=== PATIENT | female | born 1965 | race Native Hawaiian/Other Pacific Islander ===

== ENCOUNTER 2019-04-01 20:37 | Inpatient (IN) | payer BC, OTHER ==
[~2019-04-01] VITALS: Ht 154.9 cm; Wt 83.7 kg
[2019-04-01] MEDS ORDERED: LACTATED RINGERS 1,000 ML IV ONE (22:19)
[2019-04-01 22:27] LABS: BASOPHILS % (AUTO) 0 % (0-10); EOSINOPHILS % (AUTO) 0 % (0-10); HEMATOCRIT 51 % (35-52); HEMOGLOBIN 17.3 G/DL (11.5-16.0); LYMPHOCYTES # (AUTO) 2.4 X 10^3 (1.0-4.0); LYMPHOCYTES % (AUTO) 14 % (12-44); MEAN CORPUSCULAR HEMOGLOBIN 29 PG (25-34); MEAN CORPUSCULAR HGB CONC 34 G/DL (32-36); MEAN CORPUSCULAR VOLUME 86 FL (80-99); MEAN PLATELET VOLUME 9.6 FL (7.4-10.4); MONOCYTES # (AUTO) 1.1 X 10^3 (0.0-1.0); MONOCYTES % (AUTO) 7 % (0-12); NEUTROPHILS # (AUTO) 13.9 X 10^3 (1.8-7.8); NEUTROPHILS % (AUTO) 80 % (42-75); PLATELET COUNT 311 10^3/uL (130-400); WHITE BLOOD COUNT 17.4 10^3/uL (4.3-11.0)
[2019-04-01] MEDS ORDERED: ONDANSETRON 4 MG/2 ML (SDV) Z0FRAN IVP ONE (22:30)
[2019-04-01 22:40] LABS: ALBUMIN 4.4 GM/DL (3.2-4.5); BILIRUBIN,TOTAL 0.6 MG/DL (0.1-1.0); CREATININE SERUM 1.46 MG/DL (0.60-1.30); MAGNESIUM 1.8 MG/DL (1.6-2.4); POTASSIUM 3.1 MMOL/L (3.6-5.0); TOTAL PROTEIN 10.1 GM/DL (6.4-8.2)
[2019-04-01 22:46] LABS: CLARITY,URINE CLOUDY; COLOR,URINE YELLOW; GLUCOSE, URINE (UA) NEGATIVE (NEGATIVE); KETONES,URINE NEGATIVE (NEGATIVE); LEUKOCYTE ESTERASE ,URINE TRACE (NEGATIVE); NITRITE,URINE NEGATIVE (NEGATIVE); PROTEIN,URINE 3+ (NEGATIVE)
--- NOTE | 2019-04-01 23:00 | NUR ---
RECEIVED REPORT FROM INESSA DIOP AT THIS TIME TO ASSUME CARE OF PT
[2019-04-01 23:17] LABS: BAND NEUTROPHILS 16 %; LYMPHOCYTES % (MANUAL) 15 %; MONOCYTES % (MANUAL) 6 %; NEUTROPHILS % (MANUAL) 63 %; RBC MORPH NORMAL
[2019-04-01 23:20] LABS: BACTERIA,URINE LARGE /HPF; BILIRUBIN,URINE 1+ (NEGATIVE); RBC,URINE 25-50 /HPF; SQUAMOUS EPITHELIAL CELL,UR 25-50 /HPF
[2019-04-01 23:30] LABS: PROTHROMBIN TIME PATIENT 13.9 SEC (12.2-14.7)
[2019-04-02] MEDS ORDERED: cefTRIAXone FOR IV USE 1,000 MG in WATER (STERILE) FOR INJECTION 10 ML IV ONE (00:15)
[2019-04-02] MEDS ORDERED: PANTOPRAZOLE 40 MG (PROTONIX) VIAL IV ONE (00:30)
[2019-04-02] MEDS ORDERED: POTASSIUM CHLORIDE INJ 20 MEQ in D5 NS 1000 ML IV SOLUTION 1,000 ML IV SCH (00:30)
[2019-04-02] MEDS ORDERED: D5 NS W/KCL 20 MEQ/L 1,000 ML IV ONE (00:37)
--- NOTE | 2019-04-02 00:45 | ED GI ---
General Chief Complaint: Abdominal/GI Problems Stated Complaint: V/D Nursing Triage Note: diarrhea x 2 days, headache, epigastric pain, nausea Sepsis Screen: Possible Sepsis Risk Source of Information: Patient (LIMITED HISTORIAN) History of Present Illness Date Seen by Provider: Apr 01, 2019 Time Seen by Provider: 22:12 Initial Comments PT ARRIVES VIA POV FROM HOME PT STATES SHE HAS BEEN SICK FOR THE LAST 2 DAYS, WITH NAUSEA/VOMITING/DIARRHEA AND EPIGASTRIC PAIN HAS VOMITED X 2, AND HAS HAD DIARRHEA AT LEAST 10 TIMES TODAY NO BLACK/BLOODY / TARRY STOOLS AND NO HEMATEMESIS HAS HAD SUBJECTIVE FEVER, BUT HAS NOT CHECKED TEMP AT ANY TIME PT STATES SHE IS ABLE TO DRINK SOME LIQUIDS, BUT NOT ANY FOOD NO PAIN ON URINATION, BUT HAS HAD DECREASED OUTPUT NO KNOWN SICK CONTACTS OR SUSPICIOUS FOODS NO OUT OF COUNTRY TRAVEL RECENTLY NO COUGH OR URI SYMPTOMS NO HISTORY OF GI PROBLEMS PCP: TONYA Allergies and Home Medications Allergies Coded Allergies: No Known Drug Allergies (Unverified , 04/01/19) Patient Home Medication List Home Medication List Reviewed: Yes Review of Systems Review of Systems Constitutional: see HPI, fever, malaise, weakness EENTM: No Symptoms Reported; No Ear Pain, No Nose Congestion, No Throat Pain Respiratory: No Symptoms Reported; Denies Cough, Denies Shortness of Air, Denies Wheezing Cardiovascular: No Symptoms Reported; Denies Chest Pain, Denies Edema, Denies Lightheadedness, Denies Palpitations, Denies Syncope Gastrointestinal: See HPI, Abdominal Pain, Diarrhea, Nausea, Poor Appetite, Poor Fluid Intake, Vomiting Genitourinary: See HPI; Denies Burning, Denies Flank Pain Musculoskeletal: no symptoms reported; No back pain, No muscle pain Skin: no symptoms reported Psychiatric/Neurological: No Symptoms Reported; Denies Headache Endocrine: No Symptoms Reported Hematologic/Lymphatic: No Symptoms Reported Past Bbsrwjy-Uyaahq-Wyvsov Hx Past Med/Social Hx: Reviewed and Corrections made Patient Social History Alcohol Use: Denies Use Recreational Drug Use: No Smoking Status: Never a Smoker 2nd Hand Smoke Exposure: No Recent Foreign Travel: No Contact w/Someone Who Travel: No Recent Infectious Disease Expo: No Recent Hopitalizations: No Seasonal Allergies Seasonal Allergies: No Past Medical History Surgeries: Yes (FINE NEEDLE ASPIRATION OF LEFT NECK MASS 10/2010) Appendectomy, Gallbladder Respiratory: No Cardiac: No Neurological: No Female Reproductive Disorders: Denies CHEMIST INSTRUMENTATION History: Menopausal Genitourinary: No Gastrointestinal: Yes (S/P APPY AND CHOLECYSTECTOMY) Musculoskeletal: No Endocrine: No HEENT: No Cancer: No Psychosocial: No Integumentary: No Blood Disorders: No Physical Exam Vital Signs Vital Signs - First Documented 04/01/19 21:58 Temp 36.7 Pulse 91 Resp 18 B/P (MAP) 145/105 (118) Capillary Refill : Less Than 3 Seconds Height/Weight/BMI Height: '" Weight: lbs. oz. 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, no motor/sensory deficits, alert, oriented x 3 Skin: normal color (NORMAL FOR ETHNICITY--), warm/dry Progress/Results/Core Measures Results/Orders Lab Results Laboratory Tests Test 04/01/19 22:11 04/01/19 22:39 04/01/19 22:57 Range/Units White Blood Count 17.4 H 4.3-11.0 10^3/uL Red Blood Count 5.91 H 4.35-5.85 10^6/uL Hemoglobin 17.3 H 11.5-16.0 G/DL Hematocrit 51 35-52 % Mean Corpuscular Volume 86 80-99 FL Mean Corpuscular Hemoglobin 29 25-34 PG Mean Corpuscular Hemoglobin Concent 34 32-36 G/DL Red Cell Distribution Width 13.0 10.0-14.5 % Platelet Count 311 130-400 10^3/uL Mean Platelet Volume 9.6 7.4-10.4 FL Neutrophils (%) (Auto) 80 H 42-75 % Lymphocytes (%) (Auto) 14 12-44 % Monocytes (%) (Auto) 7 0-12 % Eosinophils (%) (Auto) 0 0-10 % Basophils (%) (Auto) 0 0-10 % Neutrophils # (Auto) 13.9 H 1.8-7.8 X 10^3 Lymphocytes # (Auto) 2.4 1.0-4.0 X 10^3 Monocytes # (Auto) 1.1 H 0.0-1.0 X 10^3 Eosinophils # (Auto) 0.0 0.0-0.3 10^3/uL Basophils # (Auto) 0.0 0.0-0.1 10^3/uL Neutrophils % (Manual) 63 % Lymphocytes % (Manual) 15 % Monocytes % (Manual) 6 % Band Neutrophils 16 % Blood Morphology Comment NORMAL Sodium Level 128 L 135-145 MMOL/L Potassium Level 3.1 L 3.6-5.0 MMOL/L Chloride Level 93 L 98-107 MMOL/L Carbon Dioxide Level 17 L 21-32 MMOL/L Anion Gap 18 H 5-14 MMOL/L Blood Urea Nitrogen 24 H 7-18 MG/DL Creatinine 1.46 H 0.60-1.30 MG/DL Estimat Glomerular Filtration Rate 38 BUN/Creatinine Ratio 16 Glucose Level 134 H 70-105 MG/DL Calcium Level 10.0 8.5-10.1 MG/DL Corrected Calcium 9.7 8.5-10.1 MG/DL Magnesium Level 1.8 1.6-2.4 MG/DL Total Bilirubin 0.6 0.1-1.0 MG/DL Aspartate Amino Transf (AST/SGOT) 36 H 5-34 U/L Alanine Aminotransferase (ALT/SGPT) 56 H 0-55 U/L Alkaline Phosphatase 135 40-136 U/L Total Protein 10.1 H 6.4-8.2 GM/DL Albumin 4.4 3.2-4.5 GM/DL Amylase Level 85 25-125 U/L Lipase 20 8-78 U/L Serum Test, Qualitative NEGATIVE NEGATIVE Urine Color YELLOW Urine Clarity CLOUDY Urine pH 5.0 5-9 Urine Specific Camilla >=1.030 1.016-1.022 Urine Protein 3+ H NEGATIVE Urine Glucose (UA) NEGATIVE NEGATIVE Urine Ketones NEGATIVE NEGATIVE Urine Nitrite NEGATIVE NEGATIVE Urine Bilirubin 1+ H NEGATIVE Urine Urobilinogen 0.2 < = 1.0 MG/DL Urine Leukocyte Esterase TRACE H NEGATIVE Urine RBC (Auto) 3+ H NEGATIVE Urine RBC 25-50 H /HPF Urine WBC 5-10 H /HPF Urine Squamous Epithelial Cells 25-50 H /HPF Urine Crystals NONE /LPF Urine Bacteria LARGE H /HPF Urine Casts NONE /LPF Urine Mucus LARGE H /LPF Urine Culture Indicated YES Prothrombin Time 13.9 12.2-14.7 SEC INR Comment 1.0 0.8-1.4 Activated Partial Thromboplast Time 35 24-35 SEC My Orders Orders - CHRISTOPH AVILES DO Ed Iv/Invasive Line Start (04/01/19 22:19) Ekg Tracing (04/01/19 22:19) Monitor-Rhythm Ecg Trace Only (04/01/19 22:19) Amylase (04/01/19 22:19) Cbc With Automated Diff (04/01/19 22:19) Comprehensive Metabolic Panel (04/01/19 22:19) Hcg,Qualitative Serum (04/01/19 22:19) Lipase (04/01/19 22:19) Magnesium (04/01/19 22:19) Protime With Inr (04/01/19 22:19) Partial Thromboplastin Time (04/01/19 22:19) Ua Culture If Indicated (04/01/19 22:19) Ed Iv/Invasive Line Start (04/01/19 22:19) Lactated Ringers (Lr 1000 Ml Iv Solution (04/01/19 22:19) Ondansetron Injection (Zofran Injectio (04/01/19 22:30) Manual Differential (04/01/19 22:11) Ed Iv/Invasive Line Start (04/01/19 22:45) Ct Chest/Abdomen/Pelvis Wo (04/01/19 22:45) Acute Abd Series (04/01/19 22:45) Urine Culture (04/01/19 22:39) Ceftriaxone For Iv Use (Rocephin For I (04/02/19 00:15) Pantoprazole Injection (Protonix Injecti (04/02/19 00:30) D5 Ns 1000 Ml Iv So... W/Potassium Chlor (04/02/19 00:30) D5 Ns W/Kcl 20 Meq/L (Dextrose 5%/0.9% S (04/02/19 00:37) Medications Given in ED Current Medications Medications Dose Ordered Sig/Génesis Route Start Time Stop Time Status Last Admin Dose Admin Ceftriaxone Sodium 1000 mg/ Sterile Water 10 ml @ 200 mls/hr ONCE ONCE IV 04/02/19 00:15 04/02/19 00:17 DC 04/02/19 00:32 200 MLS/HR Lactated Ringer's 1,000 ml @ 0 mls/hr Q0M ONCE IV 04/01/19 22:19 04/01/19 22:22 DC 04/01/19 23:00 1,000 MLS/HR Ondansetron HCl 4 mg ONCE ONCE IVP 04/01/19 22:30 04/01/19 22:31 DC 04/01/19 23:00 4 MG Pantoprazole 40 mg ONCE ONCE IV 04/02/19 00:30 04/02/19 00:31 DC 04/02/19 00:34 40 MG Potassium Chloride/Dextrose/ Sod Cl 1,000 ml @ ud STK-MED ONCE IV 04/02/19 00:37 04/02/19 00:42 DC 04/02/19 01:02 100 MLS/HR Vital Signs/I&O 04/01/19 21:58 Temp 36.7 Pulse 91 Resp 18 B/P (MAP) 145/105 (118) Blood Pressure Mean: 118 Progress Progress Note : Progress Note NO VOMITING DURING ER STAY PT STATES SHE DID HAVE A COUPLE OF SMALL DIARRHEA STOOLS WHILE IN ER, BUT DID NOT REPORT THIS TO ANY STAFF MEMBERS TO COLLECT SPECIMEN. Initial ECG Impression Date: Apr 01, 2019 Initial ECG Impression Time: 22:15 Initial ECG Rate: 87 Initial ECG Rhythm: Normal Sinus Initial ECG Comparisson: No Previous ECG Available Diagnostic Imaging Comments ABDOMEN XRAYS--NO ACUTE PROCESS, PENDING RADIOLOGIST REVIEW CT ABDOMEN/PELVIS--NON-SPECIFIC ENTERITIS, LIQUID STOOL THROUGHOUT COLON--SUGGESTIVE OF ACUTE DIARRHEAL PROCESS---PER [facility] VIA FAX AT 0010 Reviewed: Reviewed by Al Departure Communication (Admissions) 0025--SPOKE WITH DR. ATKINSON, ACCEPTS PT FOR ADMIT Impression Primary Impression: Gastroenteritis Additional Impressions: Dehydration UTI (urinary tract infection) Electrolyte imbalance Disposition: ADMITTED INPATIENT Condition: Improved Admissions Decision to Admit Reason: Admit from ER (General) Decision to Admit/Date: Apr 02, 2019 Time/Decision to Admit Time: 00:30 Departure-Patient Inst. Referrals: NO,LOCAL PHYSICIAN (PCP) Primary Care Physician CHRISTOPH AVILES DO Apr 02, 2019 00:44
--- NOTE | 2019-04-02 02:05 | NUR ---
ARTURCARMENYAA Theo admitted to room 422-1, with an admitting diagnosis of Dehydration; Gastroenteritis and UTI, on 04/02/19 from ED via wheelchair, accompanied by staff and family.YAA RODRIGUEZ introduced to surroundings, call light, bed controls, phone, TV, temperature control, lights, meal times, smoking policy, visitor policy, side rail policy, bathrooms and showers. Patient Rights given to patient in the handbook. YAA RODRIGUEZ verbalizes understanding that [facility] is not responsible for the loss or damage to any personal effects or valuables that are kept in the patients posession during their hospitalization.
[2019-04-02 02:13] VITALS: BP 129/82
[2019-04-02 04:00] VITALS: BP 139/80
[2019-04-02 05:07] LABS: BASOPHILS % (AUTO) 0 % (0-10); EOSINOPHILS % (AUTO) 0 % (0-10); HEMATOCRIT 49 % (35-52); HEMOGLOBIN 16.5 G/DL (11.5-16.0); LYMPHOCYTES # (AUTO) 2.1 X 10^3 (1.0-4.0); LYMPHOCYTES % (AUTO) 15 % (12-44); MEAN CORPUSCULAR HEMOGLOBIN 30 PG (25-34); MEAN CORPUSCULAR HGB CONC 33 G/DL (32-36); MEAN CORPUSCULAR VOLUME 88 FL (80-99); MEAN PLATELET VOLUME 9.6 FL (7.4-10.4); MONOCYTES % (AUTO) 7 % (0-12); NEUTROPHILS # (AUTO) 11.1 X 10^3 (1.8-7.8); NEUTROPHILS % (AUTO) 78 % (42-75); PLATELET COUNT 213 10^3/uL (130-400); RED CELL DISTRIBUTION WIDTH 12.9 % (10.0-14.5); WHITE BLOOD COUNT 14.2 10^3/uL (4.3-11.0)
[2019-04-02 05:28] LABS: ALBUMIN 3.8 GM/DL (3.2-4.5); BILIRUBIN,TOTAL 0.4 MG/DL (0.1-1.0); CALCIUM 9.5 MG/DL (8.5-10.1); CREATININE SERUM 1.06 MG/DL (0.60-1.30); POTASSIUM 3.4 MMOL/L (3.6-5.0); TOTAL PROTEIN 8.7 GM/DL (6.4-8.2)
[2019-04-02] MEDS ORDERED: FLU QUADRIvalent (5+ YOA) 2019-2020 (AFLURIA) 0.5 ML IM ONE (07:00)
[2019-04-02 08:00] VITALS: BP 120/75
[2019-04-02] MEDS: D5 NS W/KCL 20 MEQ/L 1,000 ML IV SCH ×3 (08:01→16:43)
[2019-04-02] MEDS: PANTOPRAZOLE 40 MG (PROTONIX) VIAL IV SCH (08:10)
--- NOTE | 2019-04-02 08:24 | Diagnostic Imaging Report ---
EXAMINATION: Acute abdomen series INDICATION: Nausea and vomiting There are no prior studies available for comparison. The accompanying erect PA chest shows the heart size to be within normal limits. The lungs are generally clear. There is no sign of failure, pneumonia or pleural effusion. There is an oval density overlying the right upper lung measuring approximately 1.6 cm. I suspect this finding is more likely due to superimposition of the osseous structures than to a parenchymal lung mass. The mediastinum is not widened. Supine and erect views of the abdomen were obtained. There is some gas in both large and small bowel in a nonspecific fashion. There is no evidence for a small bowel obstruction. There is no mass, organomegaly or pathological calcification evident. Surgical clips are seen in the right upper quadrant and there is a single surgical clip low in the pelvis on the right. The osseous structures are intact. IMPRESSION: 1. The bowel gas pattern is nonspecific. There is no acute abnormality identified. 2. The oval density overlying the right upper lung is more likely due to superimposition of intraparenchymal abnormality. 3. Reportedly, CT of the chest, abdomen and pelvis is pending for further study. Dictated by: Dictated on workstation # [id number]
--- NOTE | 2019-04-02 08:31 | Diagnostic Imaging Report ---
PROCEDURE: CT chest, abdomen, and pelvis without contrast. TECHNIQUE: Multiple contiguous axial images were obtained through the chest, abdomen, and pelvis without the use of intravenous contrast. Auto Exposure Controls were utilized during the CT exam to meet ALARA standards for radiation dose reduction. INDICATION: Nausea and vomiting. COMPARISON: There are no prior CT chest, abdomen, or pelvis examinations available for comparison. FINDINGS: The plain film examination of the chest and abdomen performed prior to this study did note a nodular density overlying the right upper lung. On this study, there is no evidence for a mass in this area. I suspect that the nodular density in question was related to superimposition. The lungs are generally clear. There is no sign of failure, pneumonia, or pleural effusion. The heart size is within normal limits. There are no coronary artery calcifications identified. The aorta is not abnormally dilated. There is no obvious mediastinal or hilar adenopathy. The thyroid gland is generally unremarkable. There is no breast mass identified. The sections through the abdomen show that the liver is prominent and of lower density than usually seen. This does suggest fatty metamorphosis. There is no focal mass involving the liver and the biliary tree is not abnormally dilated. The gallbladder is surgically absent. The spleen, pancreas, adrenals, kidneys, aorta, and inferior vena cava show no sign of an acute abnormality. The stomach is partially filled with fluid and particulate matter and consequently difficult to assess. There is no pelvic mass or free fluid collection evident. The uterus and urinary bladder are grossly unremarkable. The appendix was not well visualized. There is a single surgical clip in the right lower quadrant. Correlation with the patient's surgical history would be recommended. The bone windows show no sign of a fracture or of a destructive lesion. IMPRESSION: 1. There is no evidence for an acute abnormality in the chest, abdomen, or pelvis. 2. The nodular density overlying the right upper lung seen on the plain film exam performed prior to this study is felt to be secondary to superimposition. There is no sign of a parenchymal lung mass. 3. The gallbladder is surgically absent. 4. The appendix could not be visualized. Dictated by: Dictated on workstation # [id number]
--- NOTE | 2019-04-02 09:04 | History & Physical ---
TAYLAIGGY MED STUDENT 04/02/19 0904: HPI History of Present Illness: CC: Diarrhea Patient has had 2d of diarrhea; stools have been loose and dark green in color. She has also had epigastric pain and nausea during this time. Denies any recent travel or sick contacts. Onset is not associated with new foods; nobody else is sick. She has not eaten for the last 2d. She has felt feverish and has had chills also. Following the onset of diarrhea, she has noticed decreased urine output and her urine has been darker; she has also had some burning associated with urination. She came to the ED yesterday and was admitted. Interval Update: This morning, Ms. Younger reports that she is feeling a little better. She denies nausea or vomiting, but has continued to have loose stools, saying she has had 6 since she has been in her room. They are now black; she has not noticed any blood in the stools. Her epigastric pain is still present, but improving. She describes it as 'achy pressure' and rates it as 5/10. She continues to have a headache this morning. She was able to eat some Jello, and feels her appetite has improved a bit. She has been able to get up to use the restroom and has not felt dizzy or lightheaded. Source: patient Exam Limitations: no limitations Date seen by provider: Apr 02, 2019 Time Seen by Provider: 08:05 Attending Physician Le Atkinson MD PCP Center[place] [place] Consult Date of Admission Apr 02, 2019 at 00:30 Home Medications Home Medications Reviewed patient Home Medication Reconciliation performed by pharmacy medication reconciliations radio technician and/or nursing. Patients Allergies have been reviewed. Allergies Coded Allergies: No Known Drug Allergies (Unverified , 04/01/19) KEO-Caoajw-Cskubm Hx Patient Social History Marrital Status: Alcohol Use: Denies Use Recreational Drug Use: No Smoking Status: Never a Smoker 2nd Hand Smoke Exposure: No Recent Foreign Travel: No Contact w/other who traveled: No Recent Hopitalizations: No Recent Infectious Disease Expo: No Review of Systems ([facility]) Constitutional: chills; No fever; weakness EENTM: No mouth pain, No nose congestion Respiratory: no symptoms reported Cardiovascular: No chest pain, No palpitations Gastrointestinal: abdominal pain (Epigastric), diarrhea; No nausea, No vomiting Genitourinary: decreased output, dysuria : No Musculoskeletal: no symptoms reported Skin: no symptoms reported Psychiatric/Neurological: Headache Physical Exam-([facility]) Physical Exam Vital Signs VS - Last 72 Hours, by Label 04/01/19 04/02/19 04/02/19 04/02/19 21:58 01:44 02:13 02:15 Temp 36.7 36.7 36.8 Pulse 91 96 79 Resp 18 18 28 B/P (MAP) 145/105 (118) 131/88 (118) 129/82 Pulse Ox 99 99 O2 Delivery Room Air Room Air Room Air 04/02/19 04/02/19 04/02/19 04:00 08:00 12:00 Temp 37.1 37.3 36.8 Pulse 80 71 81 Resp 24 20 20 B/P (MAP) 139/80 (99) 120/75 (90) 119/76 (90) Pulse Ox 97 97 96 O2 Delivery Room Air Room Air Room Air Capillary Refill : Less Than 3 Seconds General Appearance: WD/WN (Appears uncomfortable) HEENT: PERRL/EOMI Respiratory: lungs clear (Slightly tachypneic) Cardiovascular: regular rate, rhythm Gastrointestinal: soft, tenderness (Epigastric & suprapubic) Rectal: black stool (Per patient & nursing) Extremities: no calf tenderness Neurologic/Psychiatric: alert, oriented x 3 Skin: warm/dry Assessment/Plan Assessment/Plan Admission Dx 53yo F, denies any significant PMH, with 3d of diarrhea, MEEHAN, nausea, chills, subjective fever, decreased oral intake, dysuria and decreased urination. #Gastroenteritis #Diarrhea - CT showed non-specific enteritis with liquid stool throughout colon, suggest chloe of acute process - Liquid stools initially green, have now become black - Pt reports 6 episodes of loose stools since arriving to room - Will decrease rate of IVF since patient has started to tolerate PO fluids - Clear liquids for lunch; if pt tolerates, may advance diet as tolerated - Hemeoccult testing of stool - Consider Flagyl #Anion Gap #Hyponatremia #Hypokalemia - Likely due to diarrhea; anticipate improvement with IVFs and improvement/resolution of gastroenteritis - Patient denies symptoms - Continue to monitor electrolytes; adjust fluids and/or replace as needed #UTI - UA completed; follow up culture - Was started on ceftriaxone; can narrow with sensitivities #Headache - Acetaminophen 650mg Q6 PRN Clinical Quality Measures DVT/VTE Risk/Contraindication: Risk Factor Score Per Nursin RFS Level Per Nursing on Admit: 3=High LE ATKINSON MD 04/02/19 1557: HPI History of Present Illness: Reviewed above HPI with patient Source: patient Exam Limitations: no limitations Home Medications Allergies Coded Allergies: No Known Drug Allergies (Unverified , 04/01/19) GVG-Qlntvw-Wgsvke Hx Past Medical History None Review of Systems ([facility]) Constitutional: chills; No dizziness, No fever EENTM: mouth pain; No nose congestion Respiratory: no symptoms reported; No cough, No dyspnea on exertion, No short of breath Cardiovascular: no symptoms reported; No chest pain, No edema, No palpitations Gastrointestinal: abdominal pain (Epigastric), diarrhea, loss of appetite, melena; No nausea, No vomiting Genitourinary: decreased output; No dysuria, No frequency, No hematuria : No Musculoskeletal: no symptoms reported Skin: no symptoms reported Psychiatric/Neurological: Headache; Denies Weakness Reviewed Test Results Reviewed Test Results Lab Laboratory Tests Test 04/01/19 22:11 04/01/19 22:39 04/01/19 22:57 04/02/19 04:25 Range/Units White Blood Count 17.4 H 14.2 H 4.3-11.0 10^3/uL Red Blood Count 5.91 H 5.59 4.35-5.85 10^6/uL Hemoglobin 17.3 H 16.5 H 11.5-16.0 G/DL Hematocrit 51 49 35-52 % Mean Corpuscular Volume 86 88 80-99 FL Mean Corpuscular Hemoglobin 29 30 25-34 PG Mean Corpuscular Hemoglobin Concent 34 33 32-36 G/DL Red Cell Distribution Width 13.0 12.9 10.0-14.5 % Platelet Count 311 213 130-400 10^3/uL Mean Platelet Volume 9.6 9.6 7.4-10.4 FL Neutrophils (%) (Auto) 80 H 78 H 42-75 % Lymphocytes (%) (Auto) 14 15 12-44 % Monocytes (%) (Auto) 7 7 0-12 % Eosinophils (%) (Auto) 0 0 0-10 % Basophils (%) (Auto) 0 0 0-10 % Neutrophils # (Auto) 13.9 H 11.1 H 1.8-7.8 X 10^3 Lymphocytes # (Auto) 2.4 2.1 1.0-4.0 X 10^3 Monocytes # (Auto) 1.1 H 1.0 0.0-1.0 X 10^3 Eosinophils # (Auto) 0.0 0.0 0.0-0.3 10^3/uL Basophils # (Auto) 0.0 0.0 0.0-0.1 10^3/uL Neutrophils % (Manual) 63 % Lymphocytes % (Manual) 15 % Monocytes % (Manual) 6 % Band Neutrophils 16 % Blood Morphology Comment NORMAL Sodium Level 128 L 132 L 135-145 MMOL/L Potassium Level 3.1 L 3.4 L 3.6-5.0 MMOL/L Chloride Level 93 L 98 98-107 MMOL/L Carbon Dioxide Level 17 L 15 L 21-32 MMOL/L Anion Gap 18 H 19 H 5-14 MMOL/L Blood Urea Nitrogen 24 H 20 H 7-18 MG/DL Creatinine 1.46 H 1.06 0.60-1.30 MG/DL Estimat Glomerular Filtration Rate 38 55 BUN/Creatinine Ratio 16 19 Glucose Level 134 H 124 H 70-105 MG/DL Calcium Level 10.0 9.5 8.5-10.1 MG/DL Corrected Calcium 9.7 9.7 8.5-10.1 MG/DL Magnesium Level 1.8 1.6-2.4 MG/DL Total Bilirubin 0.6 0.4 0.1-1.0 MG/DL Aspartate Amino Transf (AST/SGOT) 36 H 34 5-34 U/L Alanine Aminotransferase (ALT/SGPT) 56 H 51 0-55 U/L Alkaline Phosphatase 135 118 40-136 U/L Total Protein 10.1 H 8.7 H 6.4-8.2 GM/DL Albumin 4.4 3.8 3.2-4.5 GM/DL Amylase Level 85 66 25-125 U/L Lipase 20 20 8-78 U/L Serum Test, Qualitative NEGATIVE NEGATIVE Urine Color YELLOW Urine Clarity CLOUDY Urine pH 5.0 5-9 Urine Specific [place] >=1.030 1.016-1.022 Urine Protein 3+ H NEGATIVE Urine Glucose (UA) NEGATIVE NEGATIVE Urine Ketones NEGATIVE NEGATIVE Urine Nitrite NEGATIVE NEGATIVE Urine Bilirubin 1+ H NEGATIVE Urine Urobilinogen 0.2 < = 1.0 MG/DL Urine Leukocyte Esterase TRACE H NEGATIVE Urine RBC (Auto) 3+ H NEGATIVE Urine RBC 25-50 H /HPF Urine WBC 5-10 H /HPF Urine Squamous Epithelial Cells 25-50 H /HPF Urine Crystals NONE /LPF Urine Bacteria LARGE H /HPF Urine Casts NONE /LPF Urine Mucus LARGE H /LPF Urine Culture Indicated YES Prothrombin Time 13.9 12.2-14.7 SEC INR Comment 1.0 0.8-1.4 Activated Partial Thromboplast Time 35 24-35 SEC Physical Exam-([facility]) Physical Exam General Appearance: WD/WN (Appears uncomfortable), no apparent distress HEENT: PERRL/EOMI Neck: non-tender, full range of motion, supple Respiratory: chest non-tender, lungs clear, normal breath sounds, no respiratory distress, no accessory muscle use Cardiovascular: normal peripheral pulses, regular rate, rhythm, no murmur Gastrointestinal: soft; No distended, No guarding, No rebound; tenderness (Epigastric & suprapubic) Extremities: normal range of motion, non-tender, no pedal edema, no calf tenderness, normal capillary refill 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, no motor/sensory deficits, alert, normal mood/affect, oriented x 3 Skin: normal color, warm/dry Lymphatic: no adenopathy Assessment/Plan Assessment/Plan Admission Status: Observation (1) Gastroenteritis Status: Acute Assessment & Plan: - CLD, advance as tolerated, will decrease IVFs 75/hr, stool change hemoccult pending, OP pending (2) Abdominal pain Status: Acute Qualifiers: Qualified Codes: R10.13 - Epigastric pain (3) Dehydration Status: Acute Supervisory-Addendum Brief Verification & Attestation Participated in pt care: history Personally performed: exam Care discussed with: Medical Student Procedures: n/a Verification and Attestation of Medical Student E/M Service A medical student performed and documented this service in my presence. I reviewed and verified all information documented by the medical student and made modifications to such information, when appropriate. I personally performed the physical exam and medical decision making. Le Atkinson, Apr 02, 2019,15:58 IGGY BOURNE STUDENT Apr 02, 2019 09:04 LE ATKINSON MD Apr 02, 2019 15:57
[2019-04-02] MEDS ORDERED: ACET-2267 PO (09:38)
--- NOTE | 2019-04-02 09:39 | NUR ---
SPOKE WITH THE PT TO COMPLETE THE MED REC. PT DENIES BEING ON ANY PRESCRIPTION MEDS AND SAYS SHE ONLY TAKES TYLENOL OTC PRN. I DID UPDATE THE PREFERRED PHARM
--- NOTE | 2019-04-02 10:05 | NUR ---
"RD ASSESSMENT PMHx: no significant PMH; SurgHx - appendectomy, cholecystectomy PT INTERACTION: Pt was awake and pleasant during nutrition assessment. Pt states current appetite is poor and has been for the last 3 days. Note no meals recorded, per chart review. Pt states following a regular diet at home, and has no issues with chewing/swallowing food. Pt states recent episodes of nausea/vomiting x2d, but it has improved today. Pt states episodes of constipation/diarrhea x2d. Note last BM was 04/02 and pt not currently on bowel regimen per chart review. Pt states no recent wt changes. Note unable to determine recent wt hx per chart review. ABNORMAL NUTRITION-RELATED LAB VALUES LOW: Na 132; K 3.4 HIGH: BUN 20; glu 124; Pro 8.4 Est. kcal needs: 4315-5736 kcal | 15-20 kcal/kg Est. Pro needs: 67-84 g Pro | 0.8-1.0 g Pro/kg PES STATEMENT: Inadequate oral intake (NI-2.1) related to loss of appetite | nausea | vomiting | constipation | diarrhea INTERVENTION: Continue with current diet order of Clear Liquid diet. Recommend switching current supplementation order from Ensure Enlive with meals TID to Ensure Clear with meals TID, for compliance with diet order. Ensure Clear provides 250 kcal and 8 g Pro per serving. Will continue to follow and reassess as pt needs, intake and status change. MONITOR/EVALUATE: PO Intake; Plan of Care; Hydration Status; Weight Status; Lab Values Antonio Parrish, MS, RD, LD"
[2019-04-02 12:00] VITALS: BP 119/76
[2019-04-02 15:35] VITALS: BP 122/74
[2019-04-02] MEDS: ONDANSETRON 4 MG/2 ML (SDV) Z0FRAN IV PRN (17:17)
[2019-04-02 19:52] VITALS: BP 119/74
[2019-04-02] MEDS: cefTRIAXone 1,000 MG/SWFI 10 ML IV PUSH IV SCH ×2 (20:44)
[2019-04-03] VITALS: BP 115/68
[2019-04-03 04:00] VITALS: BP 114/73
[2019-04-03] MEDS: ONDANSETRON 4 MG/2 ML (SDV) Z0FRAN IV PRN (04:51)
[2019-04-03] MEDS: D5 NS W/KCL 20 MEQ/L 1,000 ML IV SCH ×2 (04:54→18:02)
[2019-04-03 06:14] LABS: BASOPHILS # (AUTO) 0.1 10^3/uL (0.0-0.1); BASOPHILS % (AUTO) 1 % (0-10); EOSINOPHILS # (AUTO) 0.1 10^3/uL (0.0-0.3); EOSINOPHILS % (AUTO) 2 % (0-10); HEMATOCRIT 42 % (35-52); HEMOGLOBIN 13.7 G/DL (11.5-16.0); LYMPHOCYTES # (AUTO) 2.8 X 10^3 (1.0-4.0); LYMPHOCYTES % (AUTO) 30 % (12-44); MEAN CORPUSCULAR HEMOGLOBIN 29 PG (25-34); MEAN CORPUSCULAR HGB CONC 33 G/DL (32-36); MEAN CORPUSCULAR VOLUME 89 FL (80-99); MEAN PLATELET VOLUME 9.5 FL (7.4-10.4); MONOCYTES # (AUTO) 1.4 X 10^3 (0.0-1.0); MONOCYTES % (AUTO) 15 % (0-12); NEUTROPHILS % (AUTO) 53 % (42-75); PLATELET COUNT 251 10^3/uL (130-400); RED CELL DISTRIBUTION WIDTH 13.1 % (10.0-14.5); WHITE BLOOD COUNT 9.3 10^3/uL (4.3-11.0)
[2019-04-03 06:33] LABS: BUN/CREATININE RATIO 11; CALCIUM 8.6 MG/DL (8.5-10.1); CARBON DIOXIDE 16 MMOL/L (21-32); CHLORIDE 109 MMOL/L (98-107); CREATININE SERUM 0.74 MG/DL (0.60-1.30); GFR ESTIMATED > 60; GLUCOSE 112 MG/DL (70-105); POTASSIUM 3.4 MMOL/L (3.6-5.0); SODIUM 137 MMOL/L (135-145)
[2019-04-03 08:00] VITALS: BP 115/71
[2019-04-03] MEDS: PANTOPRAZOLE 40 MG (PROTONIX) VIAL IV SCH (08:40)
[2019-04-03] MEDS ORDERED: ACETAMINOPHEN 325 MG TABLET PO PRN (09:00)
--- NOTE | 2019-04-03 11:14 | Progress Note - Hospitalist ---
Subjective HPI/CC On Admission Date Seen by Provider: Apr 03, 2019 Time Seen by Provider: 10:00 Subjective/Events-last exam Patient improved Flat affect and poor motivation noted E coli prelim Cx Ambulating around so will plan for DC tomorrow Review of Systems General: Fatigue Objective Exam Vital Signs Vital Signs Date Time Temp Pulse Resp B/P (MAP) Pulse Ox O2 Delivery O2 Flow Rate FiO2 04/03/19 15:39 36.6 59 18 108/70 (83) 99 Room Air Capillary Refill : Less Than 3 Seconds General Appearance: No Apparent Distress, WD/WN, Chronically ill, Obese Respiratory: Chest Non Tender, Lungs Clear, Normal Breath Sounds, No Accessory Muscle Use, No Respiratory Distress Cardiovascular: Regular Rate, Rhythm, No Edema, No Gallop, No JVD, No Murmur, Normal Peripheral Pulses Neurologic/Psychiatric: Alert, Oriented x3, No Motor/Sensory Deficits, Normal Mood/Affect Results/Procedures Lab Laboratory Tests 04/03/19 05:24 Patient resulted labs reviewed. Assessment/Plan Assessment and Plan Assess & Plan/Chief Complaint Assessment: UTI Dehydration N/V Poor motivation Plan: Ambulate Monitor BP Diagnosis/Problems Diagnosis/Problems (1) UTI (urinary tract infection) Status: Acute (2) Electrolyte imbalance Status: Acute (3) Dehydration Status: Acute (4) Gastroenteritis Status: Acute (5) Abdominal pain Status: Acute Qualifiers: Abdominal location: epigastric Qualified Codes: R10.13 - Epigastric pain Clinical Quality Measures DVT/VTE Risk/Contraindication: Risk Factor Score Per Nursin RFS Level Per Nursing on Admit: 3=High CRISELDA SMITH DO Apr 03, 2019 11:14
[2019-04-03 12:00] VITALS: BP 115/73
[2019-04-03 15:39] VITALS: BP 108/70
[2019-04-03] MEDS ORDERED: ENOXAPARIN 40 MG/0.4 ML (LOVENOX) SYR SC SCH (17:00)
[2019-04-03 20:00] VITALS: BP 113/68
[2019-04-03] MEDS: cefTRIAXone 1,000 MG/SWFI 10 ML IV PUSH IV SCH ×2 (20:18)
[2019-04-04 00:30] VITALS: BP 113/72
[2019-04-04 03:55] VITALS: BP 120/75
[2019-04-04 05:29] LABS: BASOPHILS # (AUTO) 0.1 10^3/uL (0.0-0.1); BASOPHILS % (AUTO) 1 % (0-10); EOSINOPHILS # (AUTO) 0.4 10^3/uL (0.0-0.3); EOSINOPHILS % (AUTO) 4 % (0-10); HEMATOCRIT 39 % (35-52); HEMOGLOBIN 12.7 G/DL (11.5-16.0); LYMPHOCYTES # (AUTO) 3.8 X 10^3 (1.0-4.0); LYMPHOCYTES % (AUTO) 48 % (12-44); MEAN CORPUSCULAR HEMOGLOBIN 30 PG (25-34); MEAN CORPUSCULAR HGB CONC 33 G/DL (32-36); MEAN CORPUSCULAR VOLUME 90 FL (80-99); MEAN PLATELET VOLUME 9.4 FL (7.4-10.4); MONOCYTES # (AUTO) 0.8 X 10^3 (0.0-1.0); MONOCYTES % (AUTO) 10 % (0-12); NEUTROPHILS % (AUTO) 38 % (42-75); PLATELET COUNT 223 10^3/uL (130-400); RED CELL DISTRIBUTION WIDTH 12.8 % (10.0-14.5); WHITE BLOOD COUNT 7.9 10^3/uL (4.3-11.0)
[2019-04-04 05:49] LABS: ALANINE AMINOTRANSFERASE 33 U/L (0-55); ALKALINE PHOSPHATASE 96 U/L (40-136); BILIRUBIN,TOTAL 0.2 MG/DL (0.1-1.0); BUN/CREATININE RATIO 9; CARBON DIOXIDE 19 MMOL/L (21-32); CHLORIDE 113 MMOL/L (98-107); GFR ESTIMATED > 60; GLUCOSE 107 MG/DL (70-105); POTASSIUM 3.4 MMOL/L (3.6-5.0); SODIUM 141 MMOL/L (135-145); TOTAL PROTEIN 6.5 GM/DL (6.4-8.2)
[2019-04-04 07:18] VITALS: BP 123/72
[2019-04-04] MEDS: D5 NS W/KCL 20 MEQ/L 1,000 ML IV SCH (08:21)
[2019-04-04] MEDS: PANTOPRAZOLE 40 MG (PROTONIX) VIAL IV SCH (08:21)
[2019-04-04] MEDS ORDERED: KCL 20 MEQ TAB (K-DUR) PO ONE ×2 (11:10→11:15)
[2019-04-04 11:32] VITALS: BP 137/82
[2019-04-04] MEDS ORDERED: CEFD300C3 PO (11:48)
--- NOTE | 2019-04-04 11:49 | Discharge Summary ---
Discharge Summary Hospital Course Was the Problem List Reviewed?: Yes Problems/Dx: (1) UTI (urinary tract infection) Status: Acute (2) Electrolyte imbalance Status: Acute (3) Dehydration Status: Acute (4) Gastroenteritis Status: Acute (5) Abdominal pain Status: Acute Qualifiers: Qualified Codes: R10.13 - Epigastric pain Hospital Course Date of Admission: Apr 03, 2019 at 13:28 Admission Diagnosis : Family Physician/Provider: [facility] Date of Discharge: 04/04/19 Discharge Diagnosis: UTI e coli, dehydration, N/V, Hypokalemia Hospital Course: Patient had a brief course after admitted for IVF and replacement of electrolyte deficiency and provided supportive care and anti-emetics and placed on CLD. Patient responded to supportive care and maintained on Rocephin and on day of DC she was eating and drinking well and ambulating and bowel function returned to normal and patient was DC in improved condition on Omnicef. Labs and Pending Lab Test: Laboratory Tests 04/04/19 04:48: White Blood Count 7.9, Red Blood Count 4.31L, Hemoglobin 12.7, Hematocrit 39, Mean Corpuscular Volume 90, Mean Corpuscular Hemoglobin 30, Mean Corpuscular Hemoglobin Concent 33, Red Cell Distribution Width 12.8, Platelet Count 223, Mean Platelet Volume 9.4, Neutrophils (%) (Auto) 38L, Lymphocytes (%) (Auto) 48H , Monocytes (%) (Auto) 10, Eosinophils (%) (Auto) 4, Basophils (%) (Auto) 1, Neutrophils # (Auto) 3.0, Lymphocytes # (Auto) 3.8, Monocytes # (Auto) 0.8, Eosinophils # (Auto) 0.4H, Basophils # (Auto) 0.1, Sodium Level 141, Potassium Level 3.4L, Chloride Level 113H, Carbon Dioxide Level 19L, Anion Gap 9, Blood Urea Nitrogen 6L, Creatinine 0.70, Estimat Glomerular Filtration Rate > 60, BUN/Creatinine Ratio 9, Glucose Level 107H, Calcium Level 8.0L, Corrected Calcium 8.8, Total Bilirubin 0.2, Aspartate Amino Transf (AST/SGOT) 23, Alanine Aminotransferase (ALT/SGPT) 33, Alkaline Phosphatase 96, Total Protein 6.5, Albumin 3.0L Microbiology 04/02/19 Stool Culture - Preliminary, Resulted Culture In Progress Presumptive Usual Vaishali 2/20/20 Urine Culture - Final, Complete Escherichia coli Nonenterococcus (Chains Cocci) See Comments Home Meds Active Reported Tylenol Extra Strength (Acetaminophen) 500 Mg Tablet 1,000 Mg PO Q8H PRN Assessment/Pt Instructions [facility] this week Discharge Planning: <30 minutes discharge planning Discharge Instructions Discharge Diet: No Restrictions Activity as Tolerated: Yes Discharge Physical Examination Vital Signs Vital Signs Date Time Temp Pulse Resp B/P (MAP) Pulse Ox O2 Delivery O2 Flow Rate FiO2 04/04/19 11:32 36.6 56 18 137/82 (100) 96 Room Air General Appearance: No Apparent Distress, WD/WN Respiratory: Lungs Clear Cardiovascular: Regular Rate, Rhythm Neurologic/Psychiatric: Alert, Oriented x3, No Motor/Sensory Deficits, Normal Mood/Affect Allergies: Coded Allergies: No Known Drug Allergies (Unverified , 04/01/19) Discharge Summary Date of Admission Apr 03, 2019 at 13:28 Date of Discharge Discharge Date: Apr 04, 2019 Discharge Diagnosis Assessment: UTI Dehydration N/V Poor motivation Plan: Ambulate Monitor BP (1) UTI (urinary tract infection) Status: Acute (2) Electrolyte imbalance Status: Acute (3) Dehydration Status: Acute (4) Gastroenteritis Status: Acute (5) Abdominal pain Status: Acute Qualifiers: Qualified Codes: R10.13 - Epigastric pain Clinical Quality Measures DVT/VTE Risk/Contraindication: Risk Factor Score Per Nursin RFS Level Per Nursing on Admit: 3=High CRISELDA SMITH DO Apr 04, 2019 11:49
[2019-04-04] MEDS ORDERED: FLU QUADRIvalent (5+ YOA) 2019-2020 (AFLURIA) 0.5 ML IM ONE (12:08)
--- NOTE | 2019-04-04 12:30 | NUR ---
RX AND INST AND VERBALIZED UNDERSTANDING. DC'D PER WC TO HOME.
== END 2019-04-04 12:30 | disposition home or self-care (01) | DRG 690 ==
LOC: EDUNIT# 20:37 → ER 20:38 → 4TH 04-02 00:30 → OBSVTOIN 04-03 13:28
PROVIDERS: ADMIT Family Medicine; ATTEND Family Medicine
DX: N39.0 Urinary tract infection, site not specified (principal); E86.0 Dehydration; K52.9 Noninfective gastroenteritis and colitis, unspecified; E87.1 Hypo-osmolality and hyponatremia; E87.6 Hypokalemia; R51 Headache; Z23 Encounter for immunization
CPT/HCPCS: 36415; 71250; 74022; 74176; 80048; 80053; 81000; 82150; 82274; 83690; 83735; 84703; 85007; 85025; 85027; 85610; 85730; 87015; 87045; 87046; 87088; 87324; 87328; 87329; 87449; 87899; 93005; 93041

== ENCOUNTER 2020-09-04 05:33 | Outpatient (CLI) | payer BC ==
[~2020-09-04] VITALS: Ht 152.4 cm; Wt 90.0 kg
[~2020-09-04 05:33] MED LIST: ACET-2267 PO; CEFD300C3 PO
== END 2020-09-05 11:20 | disposition home or self-care (01) ==
LOC: PREOP 05:33
PROVIDERS: ATTEND Obstetrics & Gynecology
DX: Z01.818 Encounter for other preprocedural examination (principal)

== ENCOUNTER 2020-09-11 07:17 | Day surgery (SDC) | payer BC ==
[~2020-09-11] VITALS: Ht 152.4 cm; Wt 90.0 kg
[2020-09-11] VITALS (11 sets, daily range): BP systolic 98–149; BP diastolic 56–93
[2020-09-11] MEDS ORDERED: BUPIVACAINE 0.25% 30 ML (SENSORCAINE) VIAL ONE (07:24)
[2020-09-11] MEDS ORDERED: LACTATED RINGERS 1,000 ML IV PRN (07:45)
[2020-09-11] MEDS ORDERED: proPOfol 200 MG/20 ML (DIPRIVAN) VIAL IV ONE (07:46)
[2020-09-11] MEDS ORDERED: LIDOCAINE PF 2% 5 ML (XYLOCAINE) VIAL ONE (07:46)
[2020-09-11] MEDS ORDERED: SEVOFLURANE (ULTANE) 15 ML INHAL SOLN ONE (07:46)
[2020-09-11] MEDS ORDERED: fentaNYL INJ 100 MCG/2 ML AMP ONE (07:46)
[2020-09-11] MEDS ORDERED: MIDAZOLAM 2 MG/2 ML (VERSED) VIAL ONE (07:46)
[2020-09-11] MEDS ORDERED: ONDANSETRON 4 MG/2 ML (SDV) Z0FRAN ONE (07:46)
[2020-09-11 08:50] LABS: BASOPHILS # (AUTO) 0.1 10^3/uL (0.0-0.1); BASOPHILS % (AUTO) 1 % (0-10); EOSINOPHILS # (AUTO) 0.3 10^3/uL (0.0-0.3); EOSINOPHILS % (AUTO) 3 % (0-10); HEMATOCRIT 44 % (35-52); HEMOGLOBIN 14.6 g/dL (11.5-16.0); LYMPHOCYTES # (AUTO) 3.1 10^3/uL (1.0-4.0); LYMPHOCYTES % (AUTO) 39 % (12-44); MEAN CORPUSCULAR HEMOGLOBIN 30 pg (25-34); MEAN CORPUSCULAR HGB CONC 33 g/dL (32-36); MEAN CORPUSCULAR VOLUME 91 fL (80-99); MEAN PLATELET VOLUME 9.5 fL (9.0-12.2); MONOCYTES # (AUTO) 0.5 10^3/uL (0.0-1.0); MONOCYTES % (AUTO) 6 % (0-12); NEUTROPHILS # (AUTO) 4.2 10^3/uL (1.8-7.8); NEUTROPHILS % (AUTO) 51 % (42-75); PLATELET COUNT 233 10^3/uL (130-400); WHITE BLOOD COUNT 8.2 10^3/uL (4.3-11.0)
--- NOTE | 2020-09-11 08:56 | Progress Note-Pre Operative ---
Pre-Operative Progress Note H&P Reviewed The H&P was reviewed, patient examined and no changes noted. Date Seen by Provider: Sep 11, 2020 Time Seen by Provider: 08:55 Date H&P Reviewed: Sep 11, 2020 Time H&P Reviewed: 08:45 Pre-Operative Diagnosis: Thickened endometrium, AUB CHANELLE CALDERA DO Sep 11, 2020 08:56
--- NOTE | 2020-09-11 08:58 | Discharge Inst-Women's Service ---
Discharge Inst-Women's Serv Depart Medication/Instructions New, Converted or Re-Newed RX: Transmitted to Pharmacy Problems Reviewed?: Yes Consults/Follow Up Additional Follow Up: Yes Orders/Referrals Dr. Caldera in 2-3 weeks Activity Activity: Activity as Tolerated Driving Instructions: You May Drive NO SMOKING: NO SMOKING Nothing Inside Vagina: No Douching, No [place], No Tampons Diet Discharge Diet: No Restrictions Symptoms to Report to : Bleeding Excessive, Pain Increased, Fever Over 101 Degrees F, Vaginal Bleeding Increase, Questions/Concerns For Any Problems or Questions: Contact Your Physician CHANELLE CALDERA DO Sep 11, 2020 08:58
[2020-09-11] MEDS ORDERED: IBUP-1773 PO (08:59)
[2020-09-11] MEDS ORDERED: KETOROLAC 30 MG/ML VIAL IVP ONE (09:00)
[2020-09-11] MEDS ORDERED: D5 LR IV SOLUTION 1,000 ML IV SCH (09:00)
[2020-09-11] MEDS ORDERED: ONDANSETRON 4 MG/2 ML (SDV) Z0FRAN IVP PRN ×2 (09:00→09:30)
[2020-09-11] MEDS ORDERED: KETOROLAC 30 MG/ML VIAL ONE (09:15)
[2020-09-11] MEDS ORDERED: HYDROmorphone 2 MG/ML VIAL (DILAUDID) IV ONE (09:30)
--- NOTE | 2020-09-11 10:07 | Anesthesia-General Post-Op ---
General Patient Condition Mental Status/LOC: Same as Preop Cardiovascular: Satisfactory Nausea/Vomiting: Absent Respiratory: Satisfactory Pain: Controlled Complications: Absent Post Op Complications Complications None Follow Up Care/Instructions Patient Instructions None needed. Anesthesia/Patient Condition Patient Condition Patient is doing well, no complaints, stable vital signs, no apparent adverse anesthesia problems. No complications reported per nursing. D/C home per [facility] Criteria: Yes MISSY CASTRO CRNA Sep 11, 2020 10:07
--- NOTE | 2020-09-11 18:04 | OPERATIVE REPORT ---
DATE OF SERVICE: PREOPERATIVE DIAGNOSES: 1. A 54-year-old female with thickened endometrium. 2. Abnormal uterine bleeding. POSTOPERATIVE DIAGNOSES: 1. A 54-year-old female with thickened endometrium. 2. Abnormal uterine bleeding. PROCEDURE: D and C. SURGEON: Chanelle Caldera DO ANESTHESIA: LMA general. ESTIMATED BLOOD LOSS: Minimal. URINE OUTPUT: 250 mL drained at the start of the procedure. FLUIDS: 800 mL lactated Ringer's solution. FINDINGS: Grossly normal-appearing external female genitalia with a grade II to III rectocele and the patient was asymptomatic too. SPECIMEN SENT: Endometrial curettings. INDICATIONS FOR PROCEDURE: This 54-year-old female is a patient who had sought my care for abnormal uterine bleeding in the perimenopausal status. She was 54 years old and finding of thickened endometrium and heavy bleeding on ultrasound, prompted evaluation to my services from the [facility] in [place]. Upon finding this with the patient and discussing treatment options, we discussed a diagnostic need and endometrial sampling to be performed. We discussed in office endometrial biopsy versus definitive and diagnostic D and C as well as the potential of being a curative in nature. Risk of the procedure were discussed with the patient in detail. After all her questions were answered, consent was obtained, the patient was taken to the operating room. OPERATIVE REPORT IN DETAIL: Once in the operating room, anesthesia was found to be adequate. She was placed in dorsal lithotomy position, prepped and draped in normal sterile fashion. A timeout was performed. I then drained the bladder using straight catheterization. A weighted speculum was inserted to the patient's vagina. Right angle retractor was used to visualize the cervix, which was grasped at 12 o'clock position using a long Allis clamp. I then performed paracervical block at 3 and 9 o'clock positions on the cervix. A 5 mL were injected into each site of 0.25% Marcaine. Care was taken to aspirate for injecting. I then sound the uterine cavity, depth was found to be 8 cm. I then gently dilated the cervix using Hanks dilators to maximum dilatation approximately 1.2 mm, at which point, I performed a methodical curettage in the endometrial cavity. A large tissue specimen was collected. It appears to be an endometrial polyp. Otherwise, scant endometrial tissue was collected. The tissue was sent as endometrial curettings, after which there was no active bleeding noted from any of my dissection planes or the uterus itself. I then removed all the instruments from the patient's vagina. The patient tolerated the procedure well and sent to recovery area in stable condition. Lap and sponge counts were correct at the end of the procedure. Instrument count was correct as well. Job ID: [id number] DocumentID: [id number] Dictated Date: 09/11/2020 10:52:50 [employer] Date: 09/11/2020 18:03:20 Dictated By: CHANELLE CALDERA DO
== END 2020-09-11 11:27 | disposition home or self-care (01) ==
LOC: SDC 07:17
PROVIDERS: ATTEND Obstetrics & Gynecology
DX: N84.0 Polyp of corpus uteri (principal); N81.6 Rectocele; E66.9 Obesity, unspecified; Z68.38 Body mass index [BMI] 38.0-38.9, adult
CPT/HCPCS: 36415; 84703; 85025; 86850; 86900; 86901; 87081; 88305